=== PATIENT | female | born 1995 | race Caucasian/White ===

== ENCOUNTER 2016-06-22 13:21 | Emergency (ER) | payer MEDICAID ==
[~2016-06-22] VITALS: Ht 162.6 cm; Wt 80.7 kg
[2016-06-22 13:21] VITALS: BP 136/71
[2016-06-22] MEDS ORDERED: IBUPROFEN 600 MG TABLET PO ONE ×2 (13:55→14:00)
== END 2016-06-22 15:07 | disposition home or self-care (01) ==
LOC: ER 13:23
DX: H65.92 Unspecified nonsuppurative otitis media, left ear (principal); J40 Bronchitis, not specified as acute or chronic
CPT/HCPCS: 71010; 99283; A4606; Z7610